=== PATIENT | female | born 1955 | race Caucasian/White ===

== ENCOUNTER 2017-11-19 11:40 | Day surgery (SDC) | payer MEDICARE, MEDICAID ==
[~2017-11-19] VITALS: Ht 160 cm; Wt 55.0 kg
[~2017-11-19 11:40] MED LIST: ASPI-621 PO; DM/P240L2 PO; LISI-170 PO; METO25TA35 PO; NICO-487 TD; NITR0.4T28 SL; OMEP10CA4 PO; PANT40TA5 PO; SIMV20TA PO; SUCR1ORA11 PO; TICA90TA PO
[2017-11-19] MEDS ORDERED: SODIUM CHLORIDE 0.9% 1,000 ML IV ONE (12:05)
[2017-11-19 12:20] VITALS: BP 174/100
[2017-11-19 12:53] LABS: HEMATOCRIT 42.2 % (34.6-47.8); HEMOGLOBIN 14.2 g/dL (11.7-16.4); WHITE BLOOD COUNT 9.7 x10^3/uL (3.4-10)
[2017-11-19 13:00] LABS: BLOOD UREA NITROGEN 13 mg/dL (7-18)
[2017-11-19] MEDS ORDERED: HEPARIN 1,000 UNITS/ML, 10ML ONE (13:12)
[2017-11-19] MEDS ORDERED: LIDOCAINE 2%, 20ML ONE (13:12)
[2017-11-19] MEDS ORDERED: TICAGRELOR 90 MG TABLET ONE (13:12)
[2017-11-19] MEDS ORDERED: FENTANYL PF 100 MCG/2ML ONE (13:12)
[2017-11-19] MEDS ORDERED: BIVALIRUDIN 250 MG ONE (13:12)
[2017-11-19] MEDS ORDERED: MIDAZOLAM 1 MG/ML, 5ML ONE (13:12)
[2017-11-19] MEDS ORDERED: VERAPAMIL 2.5 MG/ML, 2ML ONE (13:12)
[2017-11-19] MEDS ORDERED: SODIUM CHLORIDE 0.9% 1,000 ML IV SCH (14:39)
== END 2017-11-19 16:20 ==
LOC: CACL 11:40
PROVIDERS: ATTEND Internal Medicine Cardiovascular Disease
DX: I25.110 Atherosclerotic heart disease of native coronary artery with unstable angina pectoris (principal); E78.5 Hyperlipidemia, unspecified; J44.9 Chronic obstructive pulmonary disease, unspecified; I10 Essential (primary) hypertension; Z95.5 Presence of coronary angioplasty implant and graft
CPT/HCPCS: 36415; 80048; 85025; 93458; 93571; 99156; C1769; C1887; C1894; J1644; J2250; J3010; J3490; J7030; Q9967; J0583

== ENCOUNTER → 2018-08-27 | Outpatient (CLI) | payer MEDICARE, MEDICAID | END | disposition home or self-care (01) | LOC: CFH 13:20 | PROVIDERS: ATTEND Internal Medicine | DX: J44.9 Chronic obstructive pulmonary disease, unspecified (principal); R59.0 Localized enlarged lymph nodes | CPT/HCPCS: 71250 ==

== ENCOUNTER 2020-02-18 11:43 | Emergency (ER) | payer MEDICARE, MEDICAID ==
[~2020-02-18] VITALS: Ht 162.6 cm; Wt 55.0 kg
[~2020-02-18 11:43] MED LIST changes: -ASPI-621 PO; +ASPI81TA45 PO; -OMEP10CA4 PO; +OMEP10CA5 PO; -SUCR1ORA11 PO; +SUCR1ORA14 PO
--- NOTE | 2020-02-18 12:16 | NUR ---
EKG IN TRIAGE
[2020-02-18 13:00] LABS: BASOPHILS # (AUTO) 0.06 x10^3/uL (0-0.1); BASOPHILS % (AUTO) 1 % (0-1); EOSINOPHILS # (AUTO) 0.21 x10^3/uL (0-0.4); EOSINOPHILS % (AUTO) 2 % (1-7); LYMPHOCYTES # (AUTO) 3.21 x10^3/uL (1-3.4); LYMPHOCYTES % (AUTO) 31 % (22-44); MD NO; MEAN CORPUSCULAR HEMOGLOBIN 31.4 pg (27.0-34.8); MEAN CORPUSCULAR HGB CONC 33.8 g/dL (32.4-35.8); MEAN PLATELET VOLUME 8.8 fL (7.4-10.4); MONOCYTES # (AUTO) 0.93 x10^3/uL (0.2-0.8); MONOCYTES % (AUTO) 9 % (2-9); NEUTROPHILS # (AUTO) 6.08 x10^3/uL (1.8-6.8); NEUTROPHILS % (AUTO) 58 % (42-75); PLATELET COUNT 309 x10^3/uL (130-400); RED BLOOD COUNT 5.61 x10^6/uL (3.82-5.3); RED CELL DISTRIBUTION WIDTH 13.6 % (9.6-15.2)
[2020-02-18 13:03] LABS: ALBUMIN 4.3 g/dL (3.4-5.0); ANION GAP 5 mmol/L (5-15); CHLORIDE 108 mmol/L (98-107); CREATININE 0.72 mg/dL (0.55-1.02)
[2020-02-18 13:07] LABS: TROPONIN I < 0.015 ng/mL (0.000-0.045)
[2020-02-18] MEDS ORDERED: ALBUTEROL SULFATE 2.5 MG/3 ML NPPB ONE (13:30)
--- NOTE | 2020-02-18 13:33 | NUR ---
RT attempted at this time and this MT forwarded to [facility].
[2020-02-18 13:34] VITALS: BP 134/83
[2020-02-18] MEDS ORDERED: ALBUTEROL/IPRATROPIUM 2.5MG/0.5MG, 3 ML ONE (13:45)
== END 2020-02-18 14:27 | disposition home or self-care (01) ==
LOC: ED 13:35
DX: J20.8 Acute bronchitis due to other specified organisms (principal); B97.89 Other viral agents as the cause of diseases classified elsewhere; R07.89 Other chest pain; K21.9 Gastro-esophageal reflux disease without esophagitis; F17.200 Nicotine dependence, unspecified, uncomplicated; I25.10 Atherosclerotic heart disease of native coronary artery without angina pectoris; I10 Essential (primary) hypertension
CPT/HCPCS: 36415; 71045; 80048; 82040; 84484; 85025; 93005; 99285